=== PATIENT | male | born 1975 | race Caucasian/White ===

== ENCOUNTER 2024-01-13 12:15 | Emergency (ER) | payer OTHER, SELFPAY ==
[2024-01-13 12:28] VITALS: BP 124/76; PULSE 87; RESP 20; TEMP 36.9; O2SAT 100
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
== END 2024-01-13 13:03 | disposition left against medical advice (07) ==
PROVIDERS: Emergency Provider Nurse Practitioner Family; PCP Family Medicine
DX: L03.116 Cellulitis of left lower limb (principal); I10 Essential (primary) hypertension; K21.9 Gastro-esophageal reflux disease without esophagitis
CPT/HCPCS: 99203; G0463

== ENCOUNTER 2024-01-19 16:43 | Emergency (ER) | payer OTHER, SELFPAY ==
[2024-01-19 16:48] VITALS: BP 138/76; PULSE 70; RESP 16; TEMP 37.3; O2SAT 99
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
== END 2024-01-19 17:08 | disposition left against medical advice (07) ==
LOC: EXPBETH 16:46
PROVIDERS: Emergency Provider Nurse Practitioner Family; PCP Family Medicine
DX: L03.116 Cellulitis of left lower limb (principal); I10 Essential (primary) hypertension; K21.9 Gastro-esophageal reflux disease without esophagitis
CPT/HCPCS: 99212; G0463